=== PATIENT | male | born 1985 | race African-American/Black ===

== ENCOUNTER → 2019-11-16 | Outpatient (REF) | payer OTHER ==
[2019-11-19 10:31] LABS: SEMEN APPEARANCE OPAQUE (OPAQUE); SEMEN VISCOSITY VISCOUS (LIQUID); SEMEN VOLUME 2.5 ml (2.0-5.0); SPERM CONCENTRATION 5.9 M/ml (>=15.0); WBC CONCENTRATION <=1 M/ml (<=1 M/ml)
== END ==
LOC: M LAB REF 10:24
PROVIDERS: ATTEND Physician Assistant
DX: Z98.52 Vasectomy status (principal)

== ENCOUNTER → 2019-11-21 | Outpatient (REF) | payer OTHER ==
[2019-11-21 12:22] LABS: SEMEN APPEARANCE OPAQUE (OPAQUE); SEMEN VISCOSITY VISCOUS (LIQUID); SEMEN VOLUME 2.4 ML (2.0-5.0); SEMEN WBC >1 M/ml (<=1 M/ml)
== END ==
LOC: M LAB REF 11:39
DX: N46.9 Male infertility, unspecified (principal)

== ENCOUNTER → 2019-11-26 | Outpatient (REF) | payer OTHER ==
[2019-11-26 14:26] LABS: SEMEN APPEARANCE OPAQUE (OPAQUE); SEMEN VISCOSITY VISCOUS (LIQUID); SEMEN VOLUME 2.4 ml (2.0-5.0)
[2019-11-26 14:27] LABS: SPERM CONCENTRATION 9.6 M/ml (>=15.0); WBC CONCENTRATION >1 M/ml (<=1 M/ml)
== END ==
LOC: M LAB REF 14:05
DX: N46.9 Male infertility, unspecified (principal)

== ENCOUNTER → 2021-05-13 | Outpatient (CLI) | payer OTHER ==
[2021-05-13 17:11] LABS: THYROID STIMULATING HORMONE 0.48 uIU/ML (0.358-3.740)
[2021-05-13 17:13] LABS: LUTEINIZING HORMONE 6.1 mIU/mL (1.5-9.3); PROLACTIN 5.9 NG/ML (2.1-17.7)
[2021-05-13 17:14] LABS: FOLLICLE STIMULATING HORMONE 8.7 mIU/mL (1.4-18.1)
== END ==
LOC: M LAB 15:23
PROVIDERS: ATTEND Specialist
DX: N46.9 Male infertility, unspecified (principal)

== ENCOUNTER → 2023-03-30 | Outpatient (REF) | LOC: M PLAIMG 10:00 | PROVIDERS: ATTEND Internal Medicine | DX: Z11.52 Encounter for screening for COVID-19 (principal) ==